=== PATIENT | female | born 1975 | race Caucasian/White ===

== ENCOUNTER → 2017-08-05 | Outpatient (CLI) | payer MEDICAID | LOC: LAB 09:03 | DX: N94.19 Other specified dyspareunia (principal); N76.0 Acute vaginitis | CPT/HCPCS: Q0111 ==

== ENCOUNTER → 2017-09-17 | Outpatient (CLI) | payer MEDICAID ==
[2017-09-17 08:48] LABS: EOS # 0.1 (0.04-0.40); EOS % 1.4 % (1.0-5.0); HEMOGLOBIN 13.6 g/dL (12.5-16.0); LYMPH# 1.9 (1.50-4.00); MEAN CELL VOLUME 93 fl (78-100); MEAN CORPUSCULAR HEMOGLOBIN 30 pg (27-31); MEAN CORPUSCULAR HGB CONC 32 g/dL (33-37); MEAN PLATELET VOLUME 9.8 fl (7.4-10.4); MONO # 0.5 (0.20-0.80); NEU # 3.2 (1.40-6.50); PLATELET COUNT 335 K/mm3 (130-400); RED BLOOD COUNT 4.51 M/mm3 (4.10-5.30); RED CELL DISTRIBUTION WIDTH 12.3 % (11.5-14.5); WHITE BLOOD COUNT 5.7 K/mm3 (4.8-10.8)
== END ==
LOC: LAB 08:27
PROVIDERS: Nurse Practitioner Family
DX: J02.8 Acute pharyngitis due to other specified organisms (principal)

== ENCOUNTER → 2017-09-30 | Outpatient (CLI) | payer MEDICAID ==
[2017-09-30 18:06] LABS: ALBUMIN 3.7 g/dL (3.5-5.0); CALCIUM 8.5 mg/dL (8.4-10.2); POTASSIUM 3.8 mmol/L (3.6-5.0); TOTAL BILIRUBIN 0.5 mg/dL (0.2-1.3); TOTAL PROTEIN 7.3 g/dL (6.3-8.2)
== END ==
LOC: LAB 16:31
PROVIDERS: Family Medicine
DX: R63.5 Abnormal weight gain (principal)

== ENCOUNTER → 2017-12-02 | Outpatient (CLI) | payer MEDICAID | LOC: LAB 11:32 | DX: R50.9 Fever, unspecified (principal) ==

== ENCOUNTER → 2017-12-14 | Outpatient (CLI) | payer MEDICAID ==
[2017-12-14 14:38] LABS: STREP SCREEN NEGATIVE (NEGATIVE)
== END ==
LOC: LAB 14:15
PROVIDERS: Family Medicine
DX: J06.9 Acute upper respiratory infection, unspecified (principal)

== ENCOUNTER → 2018-02-02 | Outpatient (CLI) | payer OTHER | LOC: RAD 11:17 | DX: R10.9 Unspecified abdominal pain (principal); K83.8 Other specified diseases of biliary tract; Q61.5 Medullary cystic kidney; K57.30 Diverticulosis of large intestine without perforation or abscess without bleeding | CPT/HCPCS: Q9967 ==

== ENCOUNTER → 2018-02-24 | Outpatient (CLI) | payer OTHER ==
[2018-02-24 08:00] LABS: EOS # 0.1 (0.04-0.40); EOS % 2.2 % (1.0-5.0); HEMATOCRIT 39.9 % (37.0-47.0); HEMOGLOBIN 13.2 g/dL (12.5-16.0); LYMPH# 2.1 (1.50-4.00); MEAN CELL VOLUME 92 fl (78-100); MEAN CORPUSCULAR HEMOGLOBIN 31 pg (27-31); MEAN CORPUSCULAR HGB CONC 33 g/dL (33-37); MEAN PLATELET VOLUME 9.6 fl (7.4-10.4); MONO # 0.6 (0.20-0.80); NEU # 3.1 (1.40-6.50); PLATELET COUNT 314 K/mm3 (130-400); RED BLOOD COUNT 4.32 M/mm3 (4.10-5.30); RED CELL DISTRIBUTION WIDTH 12.5 % (11.5-14.5)
[2018-02-24 08:07] LABS: ALBUMIN 3.7 g/dL (3.5-5.0); BUN/CREATININE RATIO 18.2 (6.0-26.0); CALCIUM 8.7 mg/dL (8.4-10.2); TOTAL BILIRUBIN 0.5 mg/dL (0.2-1.3); TOTAL PROTEIN 7.5 g/dL (6.3-8.2)
== END ==
LOC: LAB 07:45
PROVIDERS: Internal Medicine Gastroenterology
DX: R10.9 Unspecified abdominal pain (principal)

== ENCOUNTER → 2018-03-23 | Outpatient (CLI) | payer OTHER | LOC: RAD 08:38 | DX: Q61.5 Medullary cystic kidney (principal) ==

== ENCOUNTER → 2018-03-29 | Outpatient (CLI) | payer OTHER ==
[2018-03-29 10:34] LABS: EOS % 0.9 % (1.0-5.0); HEMATOCRIT 39.8 % (37.0-47.0); HEMOGLOBIN 12.7 g/dL (12.5-16.0); LYMPH# 1.4 (1.50-4.00); MEAN CELL VOLUME 93 fl (78-100); MEAN CORPUSCULAR HEMOGLOBIN 30 pg (27-31); MEAN CORPUSCULAR HGB CONC 32 g/dL (33-37); MEAN PLATELET VOLUME 9.3 fl (7.4-10.4); MONO # 0.4 (0.20-0.80); NEU # 2.6 (1.40-6.50); PLATELET COUNT 358 K/mm3 (130-400); RED BLOOD COUNT 4.26 M/mm3 (4.10-5.30); RED CELL DISTRIBUTION WIDTH 12.4 % (11.5-14.5); WHITE BLOOD COUNT 4.5 K/mm3 (4.8-10.8)
[2018-03-29 10:56] LABS: ALBUMIN 3.9 g/dL (3.5-5.0); BUN/CREATININE RATIO 14.4 (6.0-26.0); CALCIUM 8.8 mg/dL (8.4-10.2); POTASSIUM 3.9 mmol/L (3.6-5.0); TOTAL BILIRUBIN 0.6 mg/dL (0.2-1.3); TOTAL PROTEIN 7.7 g/dL (6.3-8.2)
== END ==
LOC: LAB 10:25
DX: R10.9 Unspecified abdominal pain (principal); R11.0 Nausea; R11.10 Vomiting, unspecified; K59.00 Constipation, unspecified; R53.83 Other fatigue; M54.9 Dorsalgia, unspecified

== ENCOUNTER → 2019-01-12 | Outpatient (CLI) | payer OTHER ==
[2019-01-12 17:37] LABS: EOS # 0.1 (0.04-0.40); EOS % 1.5 % (1.0-5.0); HEMATOCRIT 39.5 % (37.0-47.0); HEMOGLOBIN 12.7 g/dL (12.5-16.0); LYMPH# 2.1 (1.50-4.00); MEAN CELL VOLUME 92 fl (78-100); MEAN CORPUSCULAR HEMOGLOBIN 30 pg (27-31); MEAN CORPUSCULAR HGB CONC 32 g/dL (33-37); MEAN PLATELET VOLUME 9.3 fl (7.4-10.4); MONO # 0.6 (0.20-0.80); NEU # 3.7 (1.40-6.50); PLATELET COUNT 305 K/mm3 (130-400); RED BLOOD COUNT 4.28 M/mm3 (4.10-5.30); RED CELL DISTRIBUTION WIDTH 12.5 % (11.5-14.5); WHITE BLOOD COUNT 6.5 K/mm3 (4.8-10.8)
[2019-01-12 17:46] LABS: ALBUMIN 4.1 g/dL (3.5-5.0); CALCIUM 8.6 mg/dL (8.4-10.2); POTASSIUM 3.8 mmol/L (3.6-5.0); TOTAL BILIRUBIN 0.4 mg/dL (0.2-1.3); TOTAL PROTEIN 7.6 g/dL (6.3-8.2)
== END ==
LOC: LAB 17:10
PROVIDERS: Family Medicine
DX: Z00.00 Encounter for general adult medical examination without abnormal findings (principal)

== ENCOUNTER → 2019-01-18 | Outpatient (CLI) | payer OTHER | LOC: MAMMO 09:46 | DX: Z12.31 Encounter for screening mammogram for malignant neoplasm of breast (principal) ==

== ENCOUNTER → 2019-03-14 | Outpatient (CLI) | payer OTHER ==
[2019-03-14 18:22] LABS: BASO # 0.1 (0.02-0.10); EOS # 0.1 (0.04-0.40); EOS % 1.3 % (1.0-5.0); HEMATOCRIT 39.5 % (37.0-47.0); HEMOGLOBIN 12.7 g/dL (12.5-16.0); MEAN CELL VOLUME 92 fl (78-100); MEAN CORPUSCULAR HEMOGLOBIN 30 pg (27-31); MEAN CORPUSCULAR HGB CONC 32 g/dL (33-37); MEAN PLATELET VOLUME 9.3 fl (7.4-10.4); MONO # 0.5 (0.20-0.80); NEU # 4.2 (1.40-6.50); PLATELET COUNT 326 K/mm3 (130-400); RED BLOOD COUNT 4.28 M/mm3 (4.10-5.30); RED CELL DISTRIBUTION WIDTH 12.2 % (11.5-14.5); WHITE BLOOD COUNT 6.8 K/mm3 (4.8-10.8)
== END ==
LOC: LAB 18:11
PROVIDERS: Nurse Practitioner
DX: J20.9 Acute bronchitis, unspecified (principal)

== ENCOUNTER → 2019-06-01 | Outpatient (CLI) | payer OTHER | LOC: RAD 07:01 | DX: K76.89 Other specified diseases of liver (principal); K83.9 Disease of biliary tract, unspecified; Z90.49 Acquired absence of other specified parts of digestive tract ==

== ENCOUNTER → 2019-08-26 | Outpatient (CLI) | payer OTHER | LOC: LAB 16:49 | DX: R53.83 Other fatigue (principal) ==

== ENCOUNTER → 2019-12-14 | Outpatient (CLI) | payer OTHER ==
[2019-12-14 10:34] LABS: EOS # 0.1 (0.04-0.40); EOS % 1.8 % (1.0-5.0); HEMATOCRIT 41.9 % (37.0-47.0); HEMOGLOBIN 13.2 g/dL (12.5-16.0); LYMPH# 1.8 (1.50-4.00); MEAN CELL VOLUME 93 fl (78-100); MEAN CORPUSCULAR HEMOGLOBIN 29 pg (27-31); MEAN CORPUSCULAR HGB CONC 32 g/dL (33-37); MEAN PLATELET VOLUME 9.4 fl (7.4-10.4); MONO # 0.4 (0.20-0.80); NEU # 2.7 (1.40-6.50); PLATELET COUNT 351 K/mm3 (130-400); RED BLOOD COUNT 4.51 M/mm3 (4.10-5.30); RED CELL DISTRIBUTION WIDTH 12.7 % (11.5-14.5)
[2019-12-14 10:39] LABS: ALBUMIN 4.3 g/dL (3.5-5.0)
[2019-12-14 10:40] LABS: POTASSIUM 4.1 mmol/L (3.5-5.1); SODIUM 137 mmol/L (136-145)
[2019-12-14 10:41] LABS: CALCIUM 8.9 mg/dL (8.3-10.5)
[2019-12-14 10:42] LABS: GLUCOSE 95 mg/dL (65-105); TOTAL PROTEIN 7.5 g/dL (6.4-8.3)
[2019-12-14 10:43] LABS: CARBON DIOXIDE 21 mmol/L (22-29)
[2019-12-14 10:44] LABS: TOTAL BILIRUBIN 0.5 mg/dL (0.2-1.2)
[2019-12-14 10:47] LABS: AST-SGOT 10 U/L (5-34)
[2019-12-14 10:49] LABS: ALT/SGPT 17 U/L (0-55)
[2019-12-14 10:59] LABS: TROPONIN-I < 0.03 ng/mL (<0.030)
== END ==
LOC: LAB 10:12
PROVIDERS: Nurse Practitioner
DX: N20.0 Calculus of kidney (principal); Z96.89 Presence of other specified functional implants
CPT/HCPCS: Q9967

== ENCOUNTER → 2020-01-27 | Outpatient (CLI) | payer OTHER ==
[2020-01-27 10:35] LABS: EOS # 0.1 (0.04-0.40); EOS % 1.9 % (1.0-5.0); HEMOGLOBIN 13.7 g/dL (12.5-16.0); LYMPH# 1.6 (1.50-4.00); MEAN CELL VOLUME 94 fl (78-100); MEAN CORPUSCULAR HEMOGLOBIN 30 pg (27-31); MEAN CORPUSCULAR HGB CONC 32 g/dL (33-37); MEAN PLATELET VOLUME 9.2 fl (7.4-10.4); MONO # 0.4 (0.20-0.80); NEU # 3.6 (1.40-6.50); PLATELET COUNT 351 K/mm3 (130-400); RED BLOOD COUNT 4.56 M/mm3 (4.10-5.30); RED CELL DISTRIBUTION WIDTH 12.5 % (11.5-14.5); WHITE BLOOD COUNT 5.8 K/mm3 (4.8-10.8)
[2020-01-27 10:44] LABS: POTASSIUM 3.9 mmol/L (3.5-5.1)
[2020-01-27 10:47] LABS: TOTAL PROTEIN 7.5 g/dL (6.4-8.3)
[2020-01-27 10:48] LABS: TOTAL BILIRUBIN 0.4 mg/dL (0.2-1.2)
== END ==
LOC: LAB 10:26
PROVIDERS: Family Medicine
DX: Z00.00 Encounter for general adult medical examination without abnormal findings (principal); E78.5 Hyperlipidemia, unspecified

== ENCOUNTER → 2020-04-24 | Outpatient (CLI) | payer OTHER | LOC: MAMMO 15:35 | DX: Z12.31 Encounter for screening mammogram for malignant neoplasm of breast (principal) ==

== ENCOUNTER 2020-10-29 08:38 | Emergency (ER) | payer OTHER ==
[~2020-10-29] VITALS: Ht 167.6 cm; Wt 71.8 kg
[2020-10-29 09:09] LABS: EOS # 0.1 (0.04-0.40); EOS % 1.1 % (1.0-5.0); HEMATOCRIT 41.2 % (37.0-47.0); HEMOGLOBIN 13.3 g/dL (12.5-16.0); LYMPH# 1.9 (1.50-4.00); MEAN CELL VOLUME 92 fl (78-100); MEAN CORPUSCULAR HEMOGLOBIN 30 pg (27-31); MEAN CORPUSCULAR HGB CONC 32 g/dL (33-37); MEAN PLATELET VOLUME 9.4 fl (7.4-10.4); MONO # 0.4 (0.20-0.80); NEU # 2.9 (1.40-6.50); PLATELET COUNT 328 K/mm3 (130-400); RED BLOOD COUNT 4.48 M/mm3 (4.10-5.30); RED CELL DISTRIBUTION WIDTH 12.5 % (11.5-14.5); WHITE BLOOD COUNT 5.3 K/mm3 (4.8-10.8)
[2020-10-29 09:20] LABS: ALBUMIN 3.8 g/dL (3.5-5.0); POTASSIUM 3.9 mmol/L (3.5-5.1); SODIUM 138 mmol/L (136-145)
[2020-10-29 09:21] LABS: CALCIUM 8.4 mg/dL (8.3-10.5)
[2020-10-29 09:22] LABS: GLUCOSE 100 mg/dL (65-105)
[2020-10-29 09:23] LABS: TOTAL PROTEIN 7.1 g/dL (6.4-8.3)
[2020-10-29 09:24] LABS: CARBON DIOXIDE 24 mmol/L (22-29); TOTAL BILIRUBIN 0.2 mg/dL (0.2-1.2)
[2020-10-29 09:28] LABS: AST-SGOT 7 U/L (5-34)
[2020-10-29 09:29] LABS: ALT/SGPT 14 U/L (0-55)
[2020-10-29 09:36] LABS: TROPONIN-I < 0.03 ng/mL (<0.030)
[2020-10-29 10:23] LABS: D-DIMER 0.69 mg/L FEU (0.15-0.50)
[2020-10-29 12:24] VITALS: BP 151/97
== END 2020-10-29 11:51 | disposition short-term general hospital (02) ==
LOC: ED 08:38
PROVIDERS: Physician Assistant
DX: M54.2 Cervicalgia (principal); M25.512 Pain in left shoulder; R20.2 Paresthesia of skin; R23.3 Spontaneous ecchymoses; Z90.710 Acquired absence of both cervix and uterus; Z90.49 Acquired absence of other specified parts of digestive tract
CPT/HCPCS: J7030

== ENCOUNTER → 2021-03-22 | Outpatient (CLI) | payer OTHER ==
[2021-03-22 09:16] LABS: BASO # 0.03 (0.02-0.10); EOS # 0.09 (0.04-0.40); EOS % 1.2 % (1.0-5.0); HEMATOCRIT 42.3 % (37.0-47.0); HEMOGLOBIN 13.6 g/dL (12.5-16.0); LYMPH# 2.16 (1.50-4.00); MEAN CELL VOLUME 92 fl (78-100); MEAN CORPUSCULAR HEMOGLOBIN 29 pg (27-31); MEAN CORPUSCULAR HGB CONC 32 g/dL (33-37); MEAN PLATELET VOLUME 8.6 fl (7.4-10.4); MONO # 0.84 (0.20-0.80); NEU # 4.61 (1.40-6.50); PLATELET COUNT 367 K/mm3 (130-400); RED BLOOD COUNT 4.62 M/mm3 (4.10-5.30); RED CELL DISTRIBUTION WIDTH 12.1 % (11.5-14.5); WHITE BLOOD COUNT 7.8 K/mm3 (4.8-10.8)
[2021-03-22 09:26] LABS: ALBUMIN 3.6 g/dL (3.5-5.0)
[2021-03-22 09:27] LABS: CALCIUM 8.7 mg/dL (8.3-10.5)
[2021-03-22 09:28] LABS: TOTAL PROTEIN 7.2 g/dL (6.4-8.3)
[2021-03-22 09:30] LABS: TOTAL BILIRUBIN 0.4 mg/dL (0.2-1.2)
[2021-03-22 10:01] LABS: URINE APPEARANCE HAZY; URINE BILIRUBIN NEGATIVE (NEGATIVE); URINE BLOOD NEGATIVE (NEGATIVE); URINE COLOR YELLOW; URINE GLUCOSE NEGATIVE (NEGATIVE); URINE KETONE NEGATIVE (NEGATIVE); URINE LEUKOCYTE ESTERASE NEGATIVE (NEGATIVE); URINE MUCUS PRESENT (NOT PRESENT); URINE NITRATE NEGATIVE (NEGATIVE); URINE PROTEIN(semi-quant) TRACE mg/dL (NEGATIVE); URINE UROBILINOGEN NORMAL (NORMAL)
== END ==
LOC: LAB 09:02
PROVIDERS: Physician Assistant
DX: R53.83 Other fatigue (principal)

== ENCOUNTER → 2021-06-05 | Outpatient (CLI) | payer OTHER | LOC: RAD 07:41 | DX: Z12.31 Encounter for screening mammogram for malignant neoplasm of breast (principal); M54.9 Dorsalgia, unspecified; R91.1 Solitary pulmonary nodule | CPT/HCPCS: Q9967 ==

== ENCOUNTER → 2021-08-29 | Outpatient (CLI) | payer OTHER | LOC: LAB 17:46 | DX: Z20.822 Contact with and (suspected) exposure to COVID-19 (principal) ==

== ENCOUNTER → 2021-10-16 | Outpatient (CLI) | payer OTHER | LOC: LAB 13:28 | DX: B34.9 Viral infection, unspecified (principal); Z20.822 Contact with and (suspected) exposure to COVID-19 ==

== ENCOUNTER → 2022-07-29 | Outpatient (CLI) | payer BC ==
[2022-07-29 17:52] LABS: BASO # 0.04 K/mm3 (0.02-0.10); EOS # 0.05 K/mm3 (0.04-0.40); EOS % 0.8 % (1.0-5.0); HEMATOCRIT 43.3 % (37.0-47.0); HEMOGLOBIN 14.2 g/dL (12.5-16.0); LYMPH# 1.99 K/mm3 (1.50-4.00); MEAN CELL VOLUME 91 fl (78-100); MEAN CORPUSCULAR HEMOGLOBIN 30 pg (27-31); MEAN CORPUSCULAR HGB CONC 33 g/dL (33-37); MEAN PLATELET VOLUME 9.1 fl (7.4-10.4); MONO # 0.39 K/mm3 (0.20-0.80); NEU # 4.02 K/mm3 (1.40-6.50); PLATELET COUNT 375 K/mm3 (130-400); RED BLOOD COUNT 4.74 M/mm3 (4.10-5.30); RED CELL DISTRIBUTION WIDTH 11.9 % (11.5-14.5); WHITE BLOOD COUNT 6.5 K/mm3 (4.8-10.8)
[2022-07-29 18:08] LABS: ALBUMIN 4.2 g/dL (3.5-5.0); POTASSIUM 3.8 mmol/L (3.5-5.1); SODIUM 140 mmol/L (136-145)
[2022-07-29 18:09] LABS: CALCIUM 9.3 mg/dL (8.3-10.5)
[2022-07-29 18:10] LABS: GLUCOSE 106 mg/dL (65-105); TOTAL PROTEIN 7.8 g/dL (6.4-8.3)
[2022-07-29 18:11] LABS: CARBON DIOXIDE 23 mmol/L (22-29)
[2022-07-29 18:12] LABS: TOTAL BILIRUBIN 0.6 mg/dL (0.2-1.2)
[2022-07-29 18:16] LABS: AST-SGOT 11 U/L (5-34)
[2022-07-29 18:17] LABS: ALT/SGPT 15 U/L (0-55)
[2022-07-29 18:23] LABS: TROPONIN-I < 0.030 ng/mL (<0.030)
[2022-07-29 18:35] LABS: D-DIMER 0.73 mg/L FEU (0.15-0.50)
== END ==
LOC: LAB 17:32
PROVIDERS: Nurse Practitioner
DX: R00.0 Tachycardia, unspecified (principal)

== ENCOUNTER → 2022-07-31 | Outpatient (CLI) | payer BC | LOC: RAD 14:48 | DX: R91.1 Solitary pulmonary nodule (principal); N20.0 Calculus of kidney; R79.1 Abnormal coagulation profile | CPT/HCPCS: Q9967 ==

== ENCOUNTER → 2022-09-30 | Outpatient (CLI) | payer BC ==
[2022-09-30 13:52] LABS: URINE APPEARANCE CLEAR; URINE COLOR YELLOW; URINE PROTEIN(semi-quant) TRACE (NEGATIVE)
[2022-09-30 13:53] LABS: URINE BILIRUBIN NEGATIVE (NEGATIVE); URINE BLOOD NEGATIVE (NEGATIVE); URINE GLUCOSE NEGATIVE (NEGATIVE); URINE KETONE NEGATIVE (NEGATIVE); URINE LEUKOCYTE ESTERASE NEGATIVE (NEGATIVE); URINE MUCUS PRESENT (NOT PRESENT); URINE NITRATE NEGATIVE (NEGATIVE); URINE UROBILINOGEN NORMAL (NORMAL)
== END ==
LOC: LAB 13:04
PROVIDERS: Family Medicine
DX: B37.2 Candidiasis of skin and nail (principal); N39.0 Urinary tract infection, site not specified

== ENCOUNTER → 2023-08-31 | Outpatient (CLI) | payer BC ==
[~2023-08-31] MED LIST: MOUNJARO7.5 MG/0.5 SQ; VYVANSE20 MG PO
[2023-08-31 10:02] LABS: POTASSIUM 4.2 mmol/L (3.5-5.1)
[2023-08-31 10:03] LABS: ALBUMIN 3.9 g/dL (3.5-5.0)
[2023-08-31 10:04] LABS: CALCIUM 8.9 mg/dL (8.3-10.5)
[2023-08-31 10:05] LABS: TOTAL PROTEIN 6.9 g/dL (6.4-8.3)
[2023-08-31 10:07] LABS: TOTAL BILIRUBIN 0.5 mg/dL (0.2-1.2)
[2023-08-31 10:20] LABS: BASO # 0.03 K/mm3 (0.02-0.10); EOS # 0.04 K/mm3 (0.04-0.40); HEMATOCRIT 41.4 % (37.0-47.0); HEMOGLOBIN 13.3 g/dL (12.5-16.0); MEAN CELL VOLUME 94 fl (78-100); MEAN CORPUSCULAR HEMOGLOBIN 30 pg (27-31); MEAN CORPUSCULAR HGB CONC 32 g/dL (33-37); MEAN PLATELET VOLUME 9.6 fl (7.4-10.4); MONO # 0.28 K/mm3 (0.20-0.80); NEU # 2.29 K/mm3 (1.40-6.50); PLATELET COUNT 321 K/mm3 (130-400); RED CELL DISTRIBUTION WIDTH 12.2 % (11.5-14.5); WHITE BLOOD COUNT 3.9 K/mm3 (4.8-10.8)
== END ==
LOC: LAB 09:08
PROVIDERS: Family Medicine
DX: Z00.00 Encounter for general adult medical examination without abnormal findings (principal); F41.9 Anxiety disorder, unspecified; K83.5 Biliary cyst; F32.9 Major depressive disorder, single episode, unspecified; Q61.5 Medullary cystic kidney; G43.909 Migraine, unspecified, not intractable, without status migrainosus; E66.3 Overweight; E78.5 Hyperlipidemia, unspecified; E11.9 Type 2 diabetes mellitus without complications; M81.0 Age-related osteoporosis without current pathological fracture

== ENCOUNTER → 2023-12-25 | Outpatient (CLI) | payer BC | LOC: MAMMO 07:49 | DX: M85.852 Other specified disorders of bone density and structure, left thigh (principal); M85.851 Other specified disorders of bone density and structure, right thigh ==

== ENCOUNTER → 2024-07-12 | Outpatient (CLI) | payer BC ==
[2024-07-12 09:01] LABS: BASO # 0.04 K/mm3 (0.02-0.10); EOS # 0.03 K/mm3 (0.04-0.40); EOS % 0.4 % (1.0-5.0); HEMATOCRIT 41.9 % (37.0-47.0); HEMOGLOBIN 13.5 g/dL (12.5-16.0); LYMPH# 1.38 K/mm3 (1.50-4.00); MEAN CELL VOLUME 97 fl (78-100); MEAN CORPUSCULAR HEMOGLOBIN 31 pg (27-31); MEAN CORPUSCULAR HGB CONC 32 g/dL (33-37); MEAN PLATELET VOLUME 8.7 fl (7.4-10.4); MONO # 0.44 K/mm3 (0.20-0.80); PLATELET COUNT 339 K/mm3 (130-400); RED CELL DISTRIBUTION WIDTH 12.9 % (11.5-14.5)
[2024-07-12 09:07] LABS: ALBUMIN 3.9 g/dL (3.5-5.0)
[2024-07-12 09:08] LABS: CALCIUM 8.9 mg/dL (8.3-10.5)
[2024-07-12 09:10] LABS: TOTAL PROTEIN 6.9 g/dL (6.4-8.3)
[2024-07-12 09:11] LABS: TOTAL BILIRUBIN 0.5 mg/dL (0.2-1.2)
== END ==
LOC: LAB 08:49
PROVIDERS: Family Medicine
DX: E16.2 Hypoglycemia, unspecified (principal); I10 Essential (primary) hypertension; E55.9 Vitamin D deficiency, unspecified; E03.9 Hypothyroidism, unspecified

== ENCOUNTER → 2024-12-02 | Outpatient (CLI) | payer BC ==
[~2024-12-02] MED LIST changes: +Iohexol 300 - 100 ML VIAL IV ONE; +NS 100 ML IV ONE
== END ==
LOC: RAD 09:30
DX: R91.1 Solitary pulmonary nodule (principal); I87.2 Venous insufficiency (chronic) (peripheral)
CPT/HCPCS: Q9967

== ENCOUNTER → 2025-02-23 | Outpatient (CLI) | payer BC ==
[~2025-02-23] MED LIST changes: -Iohexol 300 - 100 ML VIAL IV ONE; -NS 100 ML IV ONE
[2025-02-23 07:46] LABS: URINE WBC 0 /hpf (0-3)
[2025-02-23 08:27] LABS: PH-URINE 6.5 (5.0 - 8.0); URINE APPEARANCE CLEAR (CLEAR); URINE BILIRUBIN NEGATIVE (NEGATIVE); URINE BLOOD NEGATIVE (NEGATIVE); URINE COLOR YELLOW (YELLOW); URINE GLUCOSE NEGATIVE (NEGATIVE); URINE KETONE NEGATIVE (NEGATIVE); URINE LEUKOCYTE ESTERASE NEGATIVE (NEGATIVE); URINE NITRATE NEGATIVE (NEGATIVE); URINE PROTEIN(semi-quant) NEGATIVE (NEGATIVE)
== END ==
LOC: LAB 07:42
PROVIDERS: Nurse Practitioner
DX: R30.9 Painful micturition, unspecified (principal)